=== PATIENT | female | born 1980 | race African-American/Black ===

== ENCOUNTER 2020-12-23 18:47 | Emergency (ER) | payer OTHER ==
[~2020-12-23] VITALS: Ht 165.1 cm; Wt 122.0 kg
[2020-12-23 19:53] LABS: BASOPHILS % 0.3 % (0.0-2.0); HEMOGLOBIN. 10.8 g/dL (12.0-16.0); LYMPHOCYTES % 17.8 % (20.0-50.0); MEAN CORPUSCULAR HEMOGLOBIN 24.9 pg (28.0-32.0); MEAN CORPUSCULAR VOLUME 74.1 fL (81.0-99.0); MEAN PLATELET VOLUME 7.4 fl (7.4-10.4); MONOCYTES % 4.3 % (2.0-8.0); NEUTROPHILS % 76.6 % (40.0-76.0); PLATELET 313 x1000/uL (130-400); RED BLOOD CELL COUNT 4.31 mill/uL (4.2-5.4); RED CELL DISTRIBUTION WIDTH 14.4 % (11.6-14.6)
[2020-12-23 19:59] LABS: CHLORIDE 108 mEq/L (98-107)
[2020-12-23 20:10] LABS: B-HCG QUANTITATIVE < 1 mIU/mL (<3)
[2020-12-24 00:35] VITALS: BP 131/75
== END 2020-12-24 01:05 | disposition home or self-care (01) ==
LOC: ER 18:47
DX: N93.9 Abnormal uterine and vaginal bleeding, unspecified (principal); Z85.41 Personal history of malignant neoplasm of cervix uteri; Z90.711 Acquired absence of uterus with remaining cervical stump; Z98.890 Other specified postprocedural states
CPT/HCPCS: 36415; 80053; 84702; 85025; 86850; 86900; 99283